=== PATIENT | female | born 1975 | race Hispanic/Latino ===

== ENCOUNTER 2022-11-13 03:49 | Emergency (ER) | payer MEDICAID, OTHER ==
[~2022-11-13] VITALS: Ht 149.9 cm; Wt 73.9 kg
[2022-11-13] MEDS ORDERED: 0.9%NACL 1000ML 1,000 ML IV SCH (04:00)
[2022-11-13] MEDS ORDERED: ONDANSETRON 4MG INJ IVP ONE (04:00)
[2022-11-13 04:16] LABS: BASOPHILS % (AUTO) 0.3 % (0.0-5.0); HEMATOCRIT 37.8 % (36-48); LYMPHOCYTES % (AUTO) 31.3 % (21.0-51.0); MEAN CORPUSCULAR HEMOGLOBIN 28.9 pg (27.0-33.0); MEAN CORPUSCULAR HGB CONC 32.8 g/dL (32.0-36.0); MEAN CORPUSCULAR VOLUME 88.1 fL (79-99); MONOCYTES % (AUTO) 8.4 % (3.0-13.0); NEUTROPHILS % (AUTO) 58.7 % (40.0-77.0); PLATELET COUNT (AUTO) 299 K/uL (130-400); RED BLOOD CELL COUNT(AUTO) 4.29 MIL/uL (4.00-5.50); RED CELL DISTRIBUTION WIDTH 13.2 % (11.0-15.5); WHITE BLOOD COUNT (AUTO) 11.1 K/uL (4.8-10.8)
[2022-11-13] MEDS ORDERED: KETOROLAC 30MG VIAL (30MG/ML) ONE (04:17)
[2022-11-13 04:18] LABS: APPEARANCE,URINE CLEAR (CLEAR); BILIRUBIN,URINE NEGATIVE (NEGATIVE); COLOR,URINE LIGHT-YELLOW (YELLOW); GLUCOSE, URINE (UA) NEGATIVE (NEGATIVE); KETONES,URINE NEGATIVE (NEGATIVE); LEUKOCYTE ESTERASE ,URINE NEGATIVE Leu/uL (NEGATIVE); NITRATE,URINE NEGATIVE (NEGATIVE); OCCULT BLOOD,URINE NEGATIVE (NEGATIVE); PH,URINE 7.5 (5.0-8.0); PROTEIN,URINE NEGATIVE (NEGATIVE); UROBILINOGEN,URINE 0.2 mg/dL (0.2-1.0)
[2022-11-13 04:19] LABS: HCG,QUALITATIVE URINE NEGATIVE (NEGATIVE)
[2022-11-13 04:24] LABS: POTASSIUM 4.7 mmol/L (3.5-5.1)
[2022-11-13 04:29] LABS: ALBUMIN 3.4 g/dL (3.5-5.0)
[2022-11-13] MEDS ORDERED: KETOROLAC 30MG VIAL (30MG/ML) IVP ONE (04:30)
[2022-11-13] MEDS ORDERED: MORPHINE 4 MG SYG IVP ONE (06:00)
[2022-11-13] MEDS ORDERED: LIDOCAINE HCL-MPF 2% 5ML VIAL ONE (06:26)
[2022-11-13] MEDS ORDERED: PHARMACY COMMUNICATION MISC SCH (06:30)
[2022-11-13] MEDS ORDERED: LIDOCAINE HCL-MPF 2% 5ML VIAL IV SCH (06:30)
[2022-11-13 06:59] VITALS: BP 108/68
[2022-11-13] MEDS ORDERED: CEPH500T PO (07:54)
[2022-11-13] MEDS ORDERED: TAMS-1 PO (07:54)
[2022-11-13] MEDS ORDERED: ONDA4TAB10 PO (07:54)
[2022-11-13] MEDS ORDERED: OXYC-38 PO (07:54)
[2022-11-13] MEDS ORDERED: IBUP-2071 PO (07:54)
[2022-11-13] MEDS ORDERED: LIDOCAINE HCL MISC SCH (08:00)
[2022-11-13] MEDS ORDERED: TAMSULOSIN HCL 0.4 MG CAP.ER.24H PO SCH (08:00)
[2022-11-13] MEDS ORDERED: HYDROMORPHONE 0.5 MG SYG (0.5MG/0.5ML) IVP ONE (08:00)
[2022-11-13] MEDS ORDERED: [UNRECOGNIZED DRUG - OTHER] MISC SCH (08:00)
== END 2022-11-13 09:14 | disposition home or self-care (01) ==
LOC: EDH 03:49
DX: N20.1 Calculus of ureter (principal)
CPT/HCPCS: 99285; 74176; 96374; 96361; 96375; 80053; 85025; 81003; 81025; 36415; J7030; J2405; J2270; J1885; J3490; J1170